=== PATIENT | female | born 1950 | race Caucasian/White ===

== ENCOUNTER 2023-02-07 10:44 | Outpatient (OUT) | payer MEDICARE, SELFPAY ==
--- NOTE | 2023-02-07 10:52 | MM_ITS ---
Patient Name: ELIE LANDA MR#: [id number] : 1950 Exam Date: 02/07/2023 Ordering Doctor: DR RAUL HILL RADIOLOGY REPORT PROCEDURE: MM TOMOSYNTHESIS SCREENING BI COMPARISON: MG MAMM SCREEN 3D JESSICA CAD, 02/01/2022. MG MAMM SCREEN 3D JESSICA CAD, 01/27/2021. MG MAMM RT DIAG FU, 12/27/2019. MG MAMM JESSICA SCRN W CAD DIG, 09/12/2012. INDICATIONS: Screening Calculator Name NCI Breast Cancer Risk Assessment Tool 5 Year Breast Cancer Risk 1.30% Lifetime Breast Cancer Risk 3.50% Personal Breast Cancer No Personal Ovarian Cancer No Treatments None Family Cancers Father with kidney cancer at age 60. LOCATION: [facility] BREAST COMPOSITION: Scattered areas fibroglandular density. FINDINGS: DIAGNOSTIC CATEGORY 1--NEGATIVE. RIGHT BREAST: No significant suspicious finding. No significant change has occurred. LEFT BREAST: No significant suspicious finding. No significant change has occurred. RECOMMENDATIONS: ROUTINE MAMMOGRAM AND CLINICAL EVALUATION IN 12 MONTHS. PLEASE NOTE: A NORMAL MAMMOGRAM DOES NOT EXCLUDE THE POSSIBILITY OF BREAST CANCER. A CLINICALLY SUSPICIOUS PALPABLE LUMP SHOULD BE BIOPSIED. Dictated by: Jordin Biggs M.D. on 02/10/2023 at 09:04 Approved by: Jordin Biggs M.D. on 02/10/2023 at 09:06
== END 2023-02-07 10:45 | disposition home or self-care (01) ==
LOC: MAMMO 10:44
PROVIDERS: PCP Family Medicine; Visit Provider Family Medicine
DX: Z12.31 Encounter for screening mammogram for malignant neoplasm of breast (principal); Z80.51 Family history of malignant neoplasm of kidney
CPT/HCPCS: 77063; 77067

== ENCOUNTER 2024-02-13 10:51 | Outpatient (OUT) | payer OTHER, SELFPAY ==
--- NOTE | 2024-02-13 10:55 | MM_ITS ---
Patient Name: ELIE LANDA MR#: [id number] : 1950 Exam Date: 02/13/2024 Ordering Doctor: DR RAUL HILL RADIOLOGY REPORT PROCEDURE: MM TOMOSYNTHESIS SCREENING BI COMPARISON: MM TOMOSYNTHESIS SCREENING BI, 02/07/2023. MG MAMM SCREEN 3D JESSICA CAD, 02/01/2022. MG MAMM SCREEN 3D JESSICA CAD, 01/27/2021. MG MAMM JESSICA SCRN W CAD DIG, 09/12/2012. INDICATIONS: Screening for malignant neoplasm Calculator Name [facility] Breast Cancer Risk Assessment Tool 5 Year Breast Cancer Risk 1.30% Lifetime Breast Cancer Risk 3.30% Personal Breast Cancer No Personal Ovarian Cancer No Treatments None Family Cancers Father with kidney cancer at age 60. LOCATION: [facility] BREAST COMPOSITION: There are scattered areas of fibroglandular density. FINDINGS: DIAGNOSTIC CATEGORY 1--NEGATIVE. RIGHT BREAST: No significant suspicious finding. No significant change has occurred. LEFT BREAST: No significant suspicious finding. No significant change has occurred. RECOMMENDATIONS: ROUTINE MAMMOGRAM AND CLINICAL EVALUATION IN 12 MONTHS. PLEASE NOTE: A NORMAL MAMMOGRAM DOES NOT EXCLUDE THE POSSIBILITY OF BREAST CANCER. A CLINICALLY SUSPICIOUS PALPABLE LUMP SHOULD BE BIOPSIED. Dictated by: Jordin Biggs M.D. on 02/13/2024 at 16:22 Approved by: Jordin Biggs M.D. on 02/13/2024 at 16:24
== END 2024-02-13 10:52 | disposition home or self-care (01) ==
LOC: MAMMO 10:51
PROVIDERS: PCP Family Medicine; Visit Provider Family Medicine
DX: Z12.31 Encounter for screening mammogram for malignant neoplasm of breast (principal); Z80.51 Family history of malignant neoplasm of kidney
CPT/HCPCS: 77063; 77067